=== PATIENT | female | born 1970 ===

== ENCOUNTER 2023-12-01 13:24 | Outpatient (RCR) | payer OTHER, SELFPAY | END 2023-12-02 10:17 | disposition home or self-care (01) | LOC: PT 13:24 | PROVIDERS: PCP Orthopaedic Surgery; Visit Provider Orthopaedic Surgery | DX: S83.241D Other tear of medial meniscus, current injury, right knee, subsequent encounter (principal) | CPT/HCPCS: 97750 ==